=== PATIENT | male | born 1945 | race Caucasian/White ===

== ENCOUNTER → 2019-02-01 | Outpatient (CLI) | payer OTHER ==
[~2019-02-01] VITALS: Ht 182.9 cm; Wt 99.8 kg
[~2019-02-01] MED LIST: ADVIL100 M2 PO; AMBIEN5 MG PO; AMOXICILLIN500 M1 PO; ASPIR 8181 MG PO; ASPIRIN BUFFER325 MG PO; ASPIRIN EC325 M1 PO; ASPIRIN EC81 M1 PO; ATENOLOL 50 MG50 M1 PO; AVAPRO300 MG PO; BENICAR20 MG PO; BENICAR40 MG PO; BLOOD PRESSURE MED PO; CARVEDILOL6.25 MG PO; CLONIDINE HCL0.2 M2; CLONIDINE0.1 PO; CO Q-10100 MG PO; COLACE100 MG PO; COQ10 SG 100 S1 EACH PO; COZAAR 50 MG TA50 M2 PO; EFFIENT10 MG PO; FISH OIL 1,0001 EAC5 PO; FISHOIL PO; HYZAAR 100-251 EACH PO; IBUPROFEN 200200 M1 PO; IMDUR 30 MG TAB30 M1 PO; LIPITOR40 MG PO; LIVALO4 MG PO; LOPRESSOR50 PO; LORTAB 5 MG/5001 TA1 PO; MAGNESIUM GLUC500 MG PO; MAGNESIUM100 MG; MEDROL DOSPAK21 TAB PO; MEDROLDOSEPACK PO; MICRO-K 10 MEQ10 MEQ PO; NITROGLYCERIN0.4 MG SUBLING; PAXIL10 MG; PERCOCET PO; PLAVIX 75 MG TA75 MG PO; POTASSIUM PO; PRILOSEC40 MG PO; RANEXA500 MG PO; SIMVASTATIN40 MG PO; TOPROL XL25 MG; TOPROL XL25 MG PO; TRIAMTERENE-HC1 EAC1 PO; TRICOR145 MG PO; WELCHOL PO; XARELTO20 MG PO; ZETIA10 MG PO
[2019-02-01 09:10] VITALS: BP 141/79
[2019-02-01 09:24] LABS: HEMATOCRIT 48.2 % (42.0-52.0); HEMOGLOBIN 16.2 gm/dL (14.0-18.0); MCH 30.5 pg (26.0-34.0); MCHC 33.6 g/dL (28.0-37.0); MCV 90.9 fL (80.0-100.0); RBC 5.3 mil/uL (4.50-6.00); RDW 14.1 % (10.5-14.5); WBC 5.1 thou/uL (4.0-11.0)
--- NOTE | 2019-02-01 09:26 | EKG ---
[place] [address] [facility] [place] [address] ELECTROCARDIOGRAM REPORT Name: ZAN AKINS Room #: REG [facility]#: [id number] ������������������ Admission: 02/01/19 ������������������ Attend Phys: Arnoldo Valadez MD Discharge: ������������������ Date of : 45 Report #: [id number] ����������������������������������������������������������������� [id number] THIS REPORT FOR: //name// [facility] Test Date: 2019-02-01 Test Time: 09:16:45 Pat Name: ZAN AKINS Department: Room: Gender: M Loan Operations Manager: Juan Pablo REGALADO : 1945 Requested By: Arnoldo Valadez Order Number: [id number] MD: Jesse Antonio Measurements Intervals [place] Rate: 51 P: 31 [place]: 215 QRS: -16 QRSD: 100 T: 3 QT: 435 QTc: 401 Interpretive Statements Sinus bradycardia Borderline prolonged [place] interval Abnormal R-wave progression, early transition Left ventricular hypertrophy Compared to ECG 07/16/2017 03:01:26 No significant change was found Electronically Signed On 02-01-2019 9:26:05 CDT by Jesse Antonio [email or web address] ��������������������������������������������� <ELECTRONICALLY SIGNED> ���������������������������������������� By: Jesse Antonio MD, [facility] ��������������������������������������������� 02/01/19925 5 5 Jesse Antonio MD, [facility] /EPI
[2019-02-01 09:27] LABS: CALCIUM 9.2 mg/dL (8.5-10.1); CREATININE 1.1 mg/dL (0.7-1.3); POTASSIUM 3.9 mmol/L (3.5-5.1)
--- NOTE | 2019-02-01 17:24 | CATHLAB ---
[facility] [place] [address] INVASIVE PROCEDURE REPORT Name: ZAN AKINS Ute Room #: REG [facility]#: [id number] ������������� Admission: 02/01/19 ������������� Attend Phys: Arnoldo Valadez MD Discharge: ��� ������������� ��� Date of : 45 Date of Service: 02/01/19 1724 �� Report #: [id number] �������� ��������������������������������������������[id number] THIS REPORT FOR: //name// APPROVED REPORT Study performed: 02/01/2019 09:34:14 Patient Details The patient is a 73 year-old male Event Personnel Arnoldo Valadez Building Rigger, Giorgio Marie RN, Nisreen Camp RN, Wanda Stoddard RTR, RONAN Andrade, Genoveva Marcum Monitor Procedures Performed Left Heart Cath w/or w/o Coronaries [id number] [facility] Indication Dyspnea, Chest pain Risk Factors Hypercholesterolemia, Coronary Artery DiseaseHypertension Previous Procedures/Diagnoses Previous PCI Procedure Narrative The Right Wrist^ was infiltrated with 1% Lidocaine subcutaneous anesthesia. A TRANSRADIAL SLENDER 6F GLIDESHEATH KIT #[id number] sheath was inserted into the Right Radial Artery^. Coronary angiography was performed using coronary diagnostic catheters. The right coronary system was accessed and visualized with a 5FR JR 4 #[id number] catheter. The left coronary system was accessed and visualized with a 5FR JL 3.5 #[id number] catheter. The left ventricle was accessed and visualized with a 5FR PIG 145 ANGLED #[id number] catheter. Closure device was deployed with a Fr VASC BAND L 27CM #[id number]. The patient tolerated the procedure well and there were no complications associated with the procedure. There was no hematoma. Intraoperative Conscious Sedation Sedation start time: 943 Case end Time: 1018 Fentanyl 50 mcg Versed 1 mg [facility] [address] [place] [address] INVASIVE PROCEDURE REPORT Name: ZAN AKINS Room #: REG [facility]#: [id number] ������������� Admission: 02/01/19 ������������� Attend Phys: Arnoldo Valadez MD Discharge: ��� ������������� ��� Date of : 45 Date of Service: 02/01/19 1724 �� Report #: [id number] �������� ��������������������������������������������[id number] Fluoro Time: 10.31 minutes Dose: DAP 08391.00 cGycm2 1641 mGy Contrast Type and Amount: Omnipaque 100 ml Coronary Angiography The patient's coronary anatomy is right dominant. Diagnostic Cath Left Main This is a large caliber vessel, patent with no flow-limiting lesions. LAD This is a moderate size caliber vessel, traversing the anterior wall and wrapping around the apex. There is mild disease in the proximal and mid segments, 20%. Diagonal 1 This is a patent vessel, with no flow-limiting lesions. Circumflex This is a moderate size caliber vessel with mild disease in the proximal segment, 30%. There is a stent in the midsegment, patent with mild restenosis, 20%. OM1 This is a moderate size caliber vessel, patent with no flow-limiting lesions. OM2 This is a moderate size caliber vessel, patent with no flow-limiting lesions. Right Coronary This is a dominant vessel with an anterior takeoff, has a patent stent in the mid segment with moderate restenosis, 40-50%. R PDA This is a moderate size caliber vessel, patent with no flow-limiting lesions. RPLV This is a moderate size caliber vessel, patent with no flow-limiting lesions. Left Ventriculography The left ventricle is normal in size with normal contractility. The left ventricular ejection fraction is estimated to be >55%. Hemodynamics The aortic pressure is 147/84 mmHg with a mean of 64 mmHg. The left ventricular pressure is 135/4 mmHg with a mean of mmHg. Conclusion 1. There is a patent stent in the mid segment of the left circumflex artery with mild restenosis. 2. There is a patent stent in the mid segment of the RCA with moderate restenosis. 3. Mild disease in the LAD. [facility] [address] [place] [address] INVASIVE PROCEDURE REPORT Name: ZAN AKINS Room #: REG [facility].#: [id number] ������������� Admission: 02/01/19 ������������� Attend Phys: Arnoldo Valadez MD Discharge: ��� ������������� ��� Date of : 45 Date of Service: 02/01/19 1724 �� Report #: [id number] �������� ��������������������������������������������[id number] 4. Normal LV systolic function. 5. Recommend aggressive risk factor management. ��������������������������������������������� <ELECTRONICALLY SIGNED> ���������������������������������������� By: Arnoldo Valadez MD ��������������������������������������������� 02/01/19 1724 [id number] Arnoldo Valadez MD /INF
== END | disposition home or self-care (01) ==
LOC: CATH 07:25
PROVIDERS: Internal Medicine Cardiovascular Disease
DX: I25.10 Atherosclerotic heart disease of native coronary artery without angina pectoris (principal); E78.00 Pure hypercholesterolemia, unspecified; I10 Essential (primary) hypertension; E78.5 Hyperlipidemia, unspecified; I25.2 Old myocardial infarction; I48.91 Unspecified atrial fibrillation; G47.33 Obstructive sleep apnea (adult) (pediatric); Z79.01 Long term (current) use of anticoagulants; Z79.899 Other long term (current) drug therapy; Z98.890 Other specified postprocedural states; Z90.49 Acquired absence of other specified parts of digestive tract; Z85.820 Personal history of malignant melanoma of skin; Z95.5 Presence of coronary angioplasty implant and graft; Z87.891 Personal history of nicotine dependence; Z88.8 Allergy status to other drugs, medicaments and biological substances; Z79.82 Long term (current) use of aspirin

== ENCOUNTER 2019-03-02 17:44 | Emergency (ER) | payer OTHER ==
[~2019-03-02] VITALS: Ht 182.9 cm; Wt 100.7 kg
[2019-03-02 18:16] VITALS: BP 135/77
[2019-03-02] MEDS ORDERED: ASPIRIN325 PO (18:42)
== END 2019-03-02 18:50 | disposition home or self-care (01) ==
LOC: ER 17:44
DX: S00.93XA Contusion of unspecified part of head, initial encounter (principal); M25.552 Pain in left hip; I10 Essential (primary) hypertension; I25.10 Atherosclerotic heart disease of native coronary artery without angina pectoris; G47.00 Insomnia, unspecified; Z87.891 Personal history of nicotine dependence; Z88.8 Allergy status to other drugs, medicaments and biological substances

== ENCOUNTER 2019-04-30 00:09 | Inpatient (IN) | payer OTHER ==
[~2019-04-30] VITALS: Ht 182.9 cm; Wt 102.1 kg
--- NOTE | ~2019-04-30 | HC ---
[facility] [place] [address] CONSULTATION Name: ZAN AKINS Ute Room #: 459-P ADM IN M.R.#: [id number] Admission: 04/30/19 ������������������ Attend Phys: Westley Garza MD Discharge: ������������������ Date of : 45 Report #: [id number] THIS REPORT FOR: //name// CC: Westley Garza Dr. ____ [facility] DATE OF SERVICE: 05/01/2019 SURGICAL CONSULTATION HISTORY OF PRESENT ILLNESS: The patient is a 73-year-old who is known to me from previous hernia operation and previous bowel obstruction. This was back in 2011 when his surgery was done. The patient had at that point a history of heart disease, high blood pressure. In 2012, the patient came in with early small-bowel obstruction that resolved. The patient came to the Emergency Room last night. He had just returned, on a trip. The patient was complaining of pain in the lower part, mostly on the left side, achy in nature, then it has progressively gotten worse and it moved up also in the left side. Had a bowel movement yesterday afternoon. No diarrhea. The patient denies any nausea or vomiting. No fevers or chills. No chest pain, shortness of breath. He thought that this may have been a bowel obstruction. The patient came to the Emergency Room. When he was out of town, he did have a fairly significant swelling in his left leg and required Emergency Room visit. He said that they did do an ultrasound and he did not have any blood clot. The patient now is on Xarelto for atrial fibrillation. I believe he sees Dr. Valadez. PHYSICAL EXAMINATION: ABDOMEN: The patient does have a firm mass in the left lower quadrant consistent with a rectus hematoma. The rest of his abdomen is soft, nondistended, nontender. IMPRESSION: The patient is a 73-year-old with a large left rectus sheath hematoma. Interestingly, he said the mass was not there until he has already been in the hospital late last night and it enlarged even after his CAT scan. Looking at his CT scan, the patient did have contrast extravasation in the middle of the hematoma, but it is a fairly small size. His Xarelto has been held. He did take Xarelto Thursday night. This should be a self-limited process. We will follow. We will need to continue to hold his Xarelto. I think he can have a liquid diet. He said he would like to try some hydrocodone for his pain, which he has done well in the past. ��������������������������������������������� ���������������������������������������� By: ��������������������������������������������� [id number] Yuniel Rubio MD /nt
[~2019-04-30 00:09] MED LIST changes: +ASPIRIN325 PO
[2019-04-30 00:20] VITALS: BP 161/87
[2019-04-30 00:50] LABS: ABSOLUTE NEUTROPHILS 3.7 thou/uL (1.4-8.2); BASOPHILS 0.6 % (0.0-2.0); EOSINOPHILS 2.1 % (0.0-3.0); HEMATOCRIT 47.6 % (42.0-52.0); HEMOGLOBIN 16.2 gm/dL (14.0-18.0); LYMPHOCYTES 25.8 % (24.0-44.0); MONOCYTES 9.9 % (1.0-8.0); PLATELET COUNT 153 thou/uL (150-400); POLYS 61.6 % (36.0-66.0); RBC 5.22 mil/uL (4.50-6.00); RDW 13.6 % (10.5-14.5)
[2019-04-30 01:02] LABS: CALCIUM 8.8 mg/dL (8.5-10.1); POTASSIUM 3.9 mmol/L (3.5-5.1)
[2019-04-30 01:08] LABS: ALBUMIN 3.4 g/dL (3.4-5.0); TOTAL BILIRUBIN 0.9 mg/dL (<0.1-1.0); TOTAL PROTEIN 7.1 g/dL (6.4-8.2)
[2019-04-30 02:16] LABS: URINE BILIRUBIN NEGATIVE (Negative); URINE BLOOD NEGATIVE (Negative); URINE CLARITY CLEAR; URINE COLOR YELLOW; URINE GLUCOSE-RANDOM* NEGATIVE (Negative); URINE KETONES NEGATIVE (Negative); URINE LEUKOCYTES-REFLEX NEGATIVE (Negative); URINE NITRITE-REFLEX NEGATIVE (Negative); URINE PROTEIN (DIPSTICK) NEGATIVE (Negative); URINE SPECIFIC GRAVITY <= 1.005 (1.005-1.035); URINE UROBILINOGEN 0.2 E.U./dl (0.2-1.0)
[2019-04-30 02:49] VITALS: BP 167/92
[2019-04-30 02:56] VITALS: BP 169/88
--- NOTE | 2019-04-30 05:40 | NUR ---
PATIENT ALERT AND ORIENTED X4. ARRIVED VIA WHEELCHAIR TO 4W ROOM 459 WITH QUARTER LINING SMOOTHER. ADMIT FROM ER. PATIENT BY HIMSELF AND ANSWERED QUESTIONS W/O COMPLICATION. PATIENT IS [employer] [place] WITHOUT HEARING AIDS WHICH ARE AT HOME. HE WILL HAVE HIS BRING IN HIS MEDICATION LIST. ABDOMEN DISTENDED AND TENDER IN LOWER LEFT QUAD. REMAINS NPO PER ORDER. EDEMA TO LOWER LEGS +3. PLEASANT AND COOPERATIVE. RECEIVED MORPHINE IVP IN ED, HOWEVER, REFUSED MORPHINE FROM THIS NURSE FOR HIS PAIN. WILL MONITOR.
[2019-04-30 07:35] VITALS: BP 153/77
[2019-04-30 14:05] VITALS: BP 123/76
--- NOTE | 2019-04-30 17:59 | NUR ---
PT A&OX4, VSS, PAIN IN ABDOMEN. PAIN MANAGED WITH RELAXATION, AND MEDICATION. ABDOMEN DISTENDED AND FIRM. ATTENDING DOCTOR AND GI CONSULTING DOCTOR BOTH IN TO SEE PATIENT THIS AM. AT BEDSIDE. PATIENT TOLERATING CLEAR LIQUID DIET WITHOUT ISSUE. WILL CONTINUE TO MONITOR.
[2019-04-30 19:45] VITALS: BP 134/72
[2019-05-01 02:06] VITALS: BP 144/75
[2019-05-01 04:34] LABS: HEMATOCRIT 41.7 % (42.0-52.0); HEMOGLOBIN 14.3 gm/dL (14.0-18.0); MCH 31.2 pg (26.0-34.0); MCHC 34.2 g/dL (28.0-37.0); MCV 91.3 fL (80.0-100.0); RBC 4.57 mil/uL (4.50-6.00); RDW 13.9 % (10.5-14.5)
[2019-05-01 04:47] LABS: INR 1.2; PROTIME 12.3 Seconds (9.3-11.4)
[2019-05-01 04:49] LABS: CALCIUM 8.3 mg/dL (8.5-10.1); CREATININE 0.9 mg/dL (0.7-1.3); POTASSIUM 3.3 mmol/L (3.5-5.1)
--- NOTE | 2019-05-01 04:49 | NUR ---
PATIENT ALERT AND ORIENTED X4. UP ADLIB IN ROOM. PATIENT HAS HIS OWN CPAP FROM HOME AND RT HAS HIM ON A PULSE OX OVERNIGHT. PATIENT STATED THAT BEFORE HE WENT TO SLEEP LAST NIGHT HE FELT BAD. HOWEVER, HE DENIED PAIN. VITALS WERE TAKEN WITH NO ABDORMALITIES. PATIENT WAS GIVEN TYLENOL FOR GENERALIZED UNEASY FEELING. UPON REASSESSMENT PATIENT SAID THAT HE FELT BETTER. RESTING QUIETLY. WILL MONITOR.
[2019-05-01 08:00] VITALS: BP 160/75
[2019-05-01 15:00] VITALS: BP 134/74
--- NOTE | 2019-05-01 15:19 | EKG ---
[address] [place] [address] ELECTROCARDIOGRAM REPORT Name: ZAN AKINS Room #: 459-P ADM IN ..#: [id number] ������������������ Admission: 04/30/19 ������������������ Attend Phys: Westley Garza MD Discharge: ������������������ Date of : 45 Report #: [id number] ����������������������������������������������������������������� [id number] THIS REPORT FOR: //name// [facility] ED Test Date: 2019-04-30 Test Time: 00:30:30 Pat Name: ZAN AKINS Department: Room: [facility] Gender: M Piece Hand: JENNIFER : 1945 Requested By: Colin Fontanez Order Number: [id number] MD: Jesse Antonio Measurements Intervals [place] Rate: 50 P: 35 [place]: 213 QRS: -15 QRSD: 100 T: 0 QT: 438 QTc: 400 Interpretive Statements Sinus bradycardia Borderline prolonged [place] interval Left ventricular hypertrophy Borderline T abnormalities, inferior leads Compared to ECG 02/01/2019 09:16:45 No significant change was found Electronically Signed On 05-01-2019 15:19:15 CDT by Jesse Antonio [email or web address] ��������������������������������������������� <ELECTRONICALLY SIGNED> ���������������������������������������� By: Jesse Antonio MD, [facility] ��������������������������������������������� 05/01/19 1519 0030 0030 Jesse Antonio MD, [facility] /EPI
--- NOTE | 2019-05-01 15:57 | NUR ---
PT A&OX4. IV INTACT IN R AC IFUSING K+ @ 50/HR. AMBULATES WITH STAND BY ASSIST. ABD FIRM AND DISTENDED, DENIES PAIN AT THIS TIME. CALL LIGHT W/I REACH. FAMILY AT BEDSIDE. WILL CONT. POC.
[2019-05-01 19:51] VITALS: BP 135/68
--- NOTE | 2019-05-02 04:02 | NUR ---
PATIENT ALERT AND ORIENTED X4. UP ADLIB IN ROOM. CONNECTED TO PULSE OX AND CPAP DURING THE NIGHT OFF AND ON. DENIES PAIN. STATES THAT HE DID NOT SLEEP WELL, HOWEVER, HE CAN'T PUT HIS FINGER ON TO WHY THIS WAS THE CASE. ABDOMEN REMAINS DISTENDED BUT IS SOFTER AND HAS EVENED OUT WITH BOTH SIDES BEING MORE THE SAME SIZE THAN BEFORE. BLOOD PRESSURE WITHIN GOOD LIMITS. RESTING QUIETLY. WILL MONITOR.
[2019-05-02 04:14] VITALS: BP 154/81
[2019-05-02 05:50] LABS: HEMATOCRIT 41.1 % (42.0-52.0); HEMOGLOBIN 13.9 gm/dL (14.0-18.0); MCH 31.1 pg (26.0-34.0); MCHC 33.7 g/dL (28.0-37.0); MCV 92.2 fL (80.0-100.0); RBC 4.46 mil/uL (4.50-6.00); WBC 5.4 thou/uL (4.0-11.0)
[2019-05-02 09:12] VITALS: BP 153/82
[2019-05-02 13:47] VITALS: BP 153/82
--- NOTE | 2019-05-02 14:57 | NUR ---
PT DISCHARGED HOME/SELF CARE. PATIENT A&OX4, VSS, DENIES PAIN. STOMACH LESS DISTENDED AND MORE SYMMETRICAL. PATIENT STATED HE FELT BETTER. PATIENT UP AD TIEN, WALKS AROUND HALLWAY, AT BEDSIDE. ALL BELONGINGS WITH PATIENT, IV REMOVED BEFORE DC.
== END 2019-05-02 14:20 | disposition home or self-care (01) | DRG 605 ==
LOC: ER 00:09 → EROBS 02:46 → 4W 02:46 → ENTRNSPT 05-02 14:10 → EDTRNSPTSTS 05-02 14:14 → 4W 05-02 14:20
PROVIDERS: Emergency Medicine; Surgery; ADMIT Hospitalist
DX: S30.1XXA Contusion of abdominal wall, initial encounter (principal); R19.04 Left lower quadrant abdominal swelling, mass and lump; I10 Essential (primary) hypertension; I25.10 Atherosclerotic heart disease of native coronary artery without angina pectoris; G47.33 Obstructive sleep apnea (adult) (pediatric); E78.5 Hyperlipidemia, unspecified; E87.6 Hypokalemia; E78.00 Pure hypercholesterolemia, unspecified; G47.00 Insomnia, unspecified; I48.0 Paroxysmal atrial fibrillation; I25.2 Old myocardial infarction; Z90.49 Acquired absence of other specified parts of digestive tract; Z95.5 Presence of coronary angioplasty implant and graft; Z79.82 Long term (current) use of aspirin; Z88.1 Allergy status to other antibiotic agents; Z88.8 Allergy status to other drugs, medicaments and biological substances; Z87.891 Personal history of nicotine dependence; Y93.89 Activity, other specified; Y92.89 Other specified places as the place of occurrence of the external cause; Y99.8 Other external cause status
CPT/HCPCS: 10040

== ENCOUNTER → 2020-02-23 | Outpatient (CLI) | payer OTHER | LOC: SJCVCIMAG 09:34 | DX: R00.1 Bradycardia, unspecified (principal); I25.10 Atherosclerotic heart disease of native coronary artery without angina pectoris; I48.0 Paroxysmal atrial fibrillation; E78.00 Pure hypercholesterolemia, unspecified; I10 Essential (primary) hypertension; Z79.82 Long term (current) use of aspirin; Z79.899 Other long term (current) drug therapy; E78.5 Hyperlipidemia, unspecified; Z87.891 Personal history of nicotine dependence; Z95.9 Presence of cardiac and vascular implant and graft, unspecified ==

== ENCOUNTER → 2020-08-13 | Outpatient (CLI) | payer OTHER | LOC: SJCVC 11:17 | PROVIDERS: ATTEND Internal Medicine Cardiovascular Disease | DX: R94.31 Abnormal electrocardiogram [ECG] [EKG] (principal); I44.0 Atrioventricular block, first degree; I25.10 Atherosclerotic heart disease of native coronary artery without angina pectoris; I48.0 Paroxysmal atrial fibrillation; I10 Essential (primary) hypertension; E78.00 Pure hypercholesterolemia, unspecified; R60.9 Edema, unspecified; I25.2 Old myocardial infarction; Z79.899 Other long term (current) drug therapy; Z87.891 Personal history of nicotine dependence ==

== ENCOUNTER → 2020-10-18 | Day surgery (SDC) | payer OTHER ==
[~2020-10-18] VITALS: Ht 182.9 cm; Wt 98.9 kg
[~2020-10-18] MED LIST changes: +ASA81BEC PO; +BENADRYL25 MG PO; +CATAPRES0.2 MG PO; +CO Q-10 100 MG1 EACH PO; -MAGNESIUM GLUC500 MG PO; +MAGNESIUM OXID500 M1 PO; +TOPROL XL50 MG PO
[2020-10-18 09:09] LABS: HEMATOCRIT 52.1 % (42.0-52.0); HEMOGLOBIN 17.3 gm/dL (14.0-18.0); MCH 30.5 pg (26.0-34.0); MCHC 33.2 g/dL (28.0-37.0); RBC 5.66 mil/uL (4.50-6.00); RDW 13.5 % (10.5-14.5); WBC 5.6 thou/uL (4.0-11.0)
[2020-10-18 09:18] LABS: ALBUMIN 3.7 g/dL (3.4-5.0); CALCIUM 9.4 mg/dL (8.5-10.1); CREATININE 1.3 mg/dL (0.7-1.3); POTASSIUM 3.7 mmol/L (3.5-5.1)
[2020-10-18 09:23] LABS: INR 1.1; PROTIME 11.3 Seconds (9.3-11.4)
[2020-10-18 09:30] LABS: URINE BILIRUBIN NEGATIVE (Negative); URINE BLOOD NEGATIVE (Negative); URINE CLARITY CLEAR; URINE COLOR YELLOW; URINE GLUCOSE-RANDOM* NEGATIVE (Negative); URINE KETONES NEGATIVE (Negative); URINE LEUKOCYTES-REFLEX NEGATIVE (Negative); URINE NITRITE-REFLEX NEGATIVE (Negative); URINE PROTEIN (DIPSTICK) NEGATIVE (Negative); URINE SPECIFIC GRAVITY 1.015 (1.005-1.035); URINE UROBILINOGEN 0.2 E.U./dl (0.2-1.0)
== END | disposition home or self-care (01) ==
LOC: OR 08:20
PROVIDERS: ATTEND Orthopaedic Surgery
DX: Z01.812 Encounter for preprocedural laboratory examination (principal); Z20.828 Contact with and (suspected) exposure to other viral communicable diseases; M17.11 Unilateral primary osteoarthritis, right knee; M16.11 Unilateral primary osteoarthritis, right hip; I10 Essential (primary) hypertension; I25.10 Atherosclerotic heart disease of native coronary artery without angina pectoris; I48.91 Unspecified atrial fibrillation; E78.00 Pure hypercholesterolemia, unspecified; I25.2 Old myocardial infarction; G47.30 Sleep apnea, unspecified; Z98.890 Other specified postprocedural states; Z79.899 Other long term (current) drug therapy; Z85.820 Personal history of malignant melanoma of skin; Z79.01 Long term (current) use of anticoagulants; Z98.41 Cataract extraction status, right eye; Z98.42 Cataract extraction status, left eye; Z88.8 Allergy status to other drugs, medicaments and biological substances

== ENCOUNTER → 2020-10-19 | Outpatient (CLI) | payer OTHER | LOC: LAB 13:43 | PROVIDERS: ATTEND Student in an Organized Health Care Education/Training Program | DX: Z01.812 Encounter for preprocedural laboratory examination (principal); Z20.822 Contact with and (suspected) exposure to COVID-19 ==

== ENCOUNTER → 2021-02-12 | Outpatient (CLI) | payer OTHER | LOC: SJCVCIMAG 09:59 | PROVIDERS: ATTEND Internal Medicine Cardiovascular Disease | DX: I08.0 Rheumatic disorders of both mitral and aortic valves (principal); R94.31 Abnormal electrocardiogram [ECG] [EKG]; I49.49 Other premature depolarization; I25.10 Atherosclerotic heart disease of native coronary artery without angina pectoris; I25.84 Coronary atherosclerosis due to calcified coronary lesion; I48.0 Paroxysmal atrial fibrillation; I10 Essential (primary) hypertension; R60.9 Edema, unspecified; E78.00 Pure hypercholesterolemia, unspecified; Z88.8 Allergy status to other drugs, medicaments and biological substances; E78.5 Hyperlipidemia, unspecified; I25.2 Old myocardial infarction; G47.33 Obstructive sleep apnea (adult) (pediatric); E11.9 Type 2 diabetes mellitus without complications; Z98.61 Coronary angioplasty status; Z79.82 Long term (current) use of aspirin; Z79.899 Other long term (current) drug therapy; Z87.891 Personal history of nicotine dependence; Z82.49 Family history of ischemic heart disease and other diseases of the circulatory system ==

== ENCOUNTER → 2021-08-15 | Outpatient (CLI) | payer OTHER | LOC: SJCVC 10:04 | PROVIDERS: ATTEND Internal Medicine Cardiovascular Disease | DX: R94.31 Abnormal electrocardiogram [ECG] [EKG] (principal); I11.9 Hypertensive heart disease without heart failure; R00.1 Bradycardia, unspecified; I25.10 Atherosclerotic heart disease of native coronary artery without angina pectoris; I25.84 Coronary atherosclerosis due to calcified coronary lesion; I48.0 Paroxysmal atrial fibrillation; E78.5 Hyperlipidemia, unspecified; R60.9 Edema, unspecified; Z79.82 Long term (current) use of aspirin; Z79.899 Other long term (current) drug therapy; Z88.8 Allergy status to other drugs, medicaments and biological substances; K57.92 Diverticulitis of intestine, part unspecified, without perforation or abscess without bleeding; G47.33 Obstructive sleep apnea (adult) (pediatric); D03.9 Melanoma in situ, unspecified; Z87.891 Personal history of nicotine dependence; Z72.89 Other problems related to lifestyle ==